=== PATIENT | male | born 1965 | race Caucasian/White ===

== ENCOUNTER 2017-07-22 08:49 | Emergency (ER) | payer OTHER ==
[~2017-07-22] VITALS: Ht 180.3 cm; Wt 71.0 kg
[~2017-07-22 08:49] MED LIST: ACETAMINOPHEN500 MG PO; AMRIX30 MG PO; ASPIRIN325 MG PO; CARISOPRODOL350 MG PO; CYCLOBENZAPRINE10 MG PO; CYMBALTA60 MG PO; ESCITALOPRAM OX10 MG PO; ESCITALOPRAM OX20 MG PO; EXCEDRIN EXTRA1 EACH PO; KEFLEX500 MG PO; LIDODERM 5% P1 PATCH TD; LYRICA50 MG PO; LYRICA75 MG PO; MOTRIN IB200 MG PO; NAPROSYN500 MG PO; OXYCODONE HCL15 MG PO; OXYCONTIN20 MG PO; PEPCID20 MG PO; PERCOCET 10/1 TABLET PO; QUETIAPINE FUMA50 MG PO; SEROQUEL XR150 MG PO; SEROQUEL50 MG PO; SUMATRIPTAN SUC50 MG PO; VALIUM5 MG PO
[2017-07-22] MEDS ORDERED: LORTAB 5-325 M1 EACH PO (11:29)
[2017-07-22] MEDS ORDERED: PEN-VEE K,VEET500 MG PO (11:29)
[2017-07-22] MEDS ORDERED: NAPROSYN500 MG PO (11:29)
[2017-07-22 12:09] VITALS: BP 124/79
== END 2017-07-22 12:11 | disposition home or self-care (01) ==
LOC: EME 08:49
DX: K04.7 Periapical abscess without sinus (principal); G89.29 Other chronic pain; F17.210 Nicotine dependence, cigarettes, uncomplicated
CPT/HCPCS: 99281; 99283; J3010